=== PATIENT | female | born 1965 | race African-American/Black ===

== ENCOUNTER 2021-08-28 05:51 | Day surgery (SDC) | payer OTHER ==
[~2021-08-28 05:51] MED LIST: PREDNISONE
[2021-08-28] MEDS ORDERED: LIDOCAINE 2% 30 ML JELLY TP ONE (05:52)
[2021-08-28] MEDS ORDERED: LIDOCAINE 4% 50 ML SOLUTION TP ONE (05:52)
[2021-08-28] MEDS ORDERED: BENZOCAINE 20% 50 MCG/SPRAY 57 GM TP ONE (05:52)
[2021-08-28] MEDS ORDERED: SODIUM CHLORIDE 0.9% 1,000 ML ONE (06:23)
[2021-08-28] MEDS ORDERED: SODIUM CHLORIDE 0.9% 1,000 ML IV ONE (06:30)
[2021-08-28 06:44] LABS: COVID AG,FIA SOURCE NASOPHARYNGEAL
[2021-08-28] MEDS ORDERED: FentaNYL CITRATE PF 100 MCG/2 ML VIAL ONE (07:42)
[2021-08-28] MEDS ORDERED: MIDAZOLAM HCL 5 MG/ML VIAL ONE (07:42)
[2021-08-28] MEDS ORDERED: MethylPREDNISolone SOD SUCC 125 MG/2 ML VIAL IVP ONE (09:30)
[2021-08-28] MEDS ORDERED: MethylPREDNISolone SOD SUCC 125 MG/2 ML VIAL ONE (10:01)
== END 2021-08-28 11:05 | disposition home or self-care (01) ==
LOC: SURGERY 05:51
PROVIDERS: ATTEND Internal Medicine Critical Care Medicine
DX: R05.3 Chronic cough (principal); Z98.890 Other specified postprocedural states; Z79.899 Other long term (current) drug therapy; Z20.822 Contact with and (suspected) exposure to COVID-19
CPT/HCPCS: 31623; 31624; 71045; 87015; 87070; 87101; 87206; 87220; 87426; 88112; 88184; 88185; 88312; C9803; J2250; J2930; J3010; J7030; Z7610